=== PATIENT | male | born 1975 | race Caucasian/White ===

== ENCOUNTER 2018-04-19 15:22 | Observation (INO) | payer OTHER, SELFPAY ==
[2018-04-19] VITALS (72 sets, daily range): BP systolic 135–153; BP diastolic 76–88; PULSE 60–77; RESP 15–20; TEMP 36.7–37.7; O2SAT 94–99
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
[2018-04-19 15:48] LABS: Abs Immature Grans 0.05 k/cumm (0.0-0.09); Absolute Basophil Count 0.03 k/cumm (0.0-0.2); Absolute Eosinophil Count 0.03 k/cumm (0.0-0.7); Absolute Lymphocyte Count 1.15 k/cumm (1.2-3.4); Absolute Neutrophil Count 15.03 k/cumm (1.2-6.7); Basophils % 0.2; Eosinophils % 0.2; HCT 44.5 % (40.0-50.0); HGB 14.6 g/dL (13.5-17.5); Immature Grans % 0.3; Lymphocytes % 6.7; Mean Corp. HGB Concentration 32.8 g/dL (32.0-36.0); Mean Corpuscular Hemoglobin 31.5 pg (27.0-33.0); Mean Corpuscular Volume 96.1 fL (80-95); Mean Platelet Volume 11.2 fL (8.0-11.0); Monocytes % 4.7; Neutrophils % 87.9; Platelet Count 170 x1000/uL (130-400); RBC 4.63 m/cumm (4.50-6.00); RBC Distribution Width 13.2 % (11.8-14.1)
[2018-04-19] MEDS: fentaNYL 100 MCG/2 ML VIAL IVP (15:48)
[2018-04-19] MEDS: Normal Saline 1,000 ML 1000 ML IV (15:49)
[2018-04-19 16:19] LABS: ALT 33 U/L (12-78); AST 34 U/L (15-37); Albumin 3.9 g/dL (3.4-5.0); Alkaline Phosphatase 80 U/L (46-116); Anion Gap 6.3 mmol/L (3-11); BUN 23 mg/dL (7-18); Bilirubin, Total 0.4 mg/dL (0.2-1.0); CO2 29.7 mmol/L (21.0-32.0); CREATININE 0.95 mg/dL (0.70-1.30); Calcium 8.7 mg/dL (8.5-10.1); Chloride 104 mmol/L (98-107); Glucose 123 mg/dL (70-100); Magnesium 2.1 mg/dL (1.8-2.4); Potassium 4.3 mmol/L (3.5-5.1); Sodium 140 mmol/L (136-145); Total Protein 7.1 g/dL (6.4-8.2); Troponin I < 0.02 ng/mL (0.00-0.06)
[2018-04-19] MEDS: Omnipaque 350 MG/ML 100 ML BTL IJ (16:29)
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
[2018-04-19] MEDS: HYDROmorphone 4 MG TAB PO (17:50)
--- NOTE | 2018-04-19 18:00 | RESPIRATORY ---
Patient unable to focus attention on incentive spirometry instruction. Gave instruction and why important to use IS to spouse. She understood all and had no questions afterwards. I did have the patient take an inspiration on the IS to show spouse manuever I was looking for. Encouraged 10 breath an hour.
[2018-04-19] MEDS: HYDROmorphone 2 MG/ML VIAL (20:57)
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
[2018-04-19] MEDS: Ketorolac 30 MG/ML VIAL IVP (22:39)
[2018-04-19] MEDS: oxyCODONE 5 mg/Acetaminophen 325 mg TAB 2 TAB PO (23:31)
[2018-04-20 01:15] VITALS: BP 124/77; PULSE 66; RESP 16; TEMP 37.1; O2SAT 95
[2018-04-20 03:40] VITALS: BP 114/62; PULSE 53; RESP 16; TEMP 36.7; O2SAT 97
[2018-04-20] MEDS: Ketorolac 30 MG/ML VIAL IVP ×2 (04:08→10:57)
[2018-04-20] MEDS: Normal Saline Flush 10 ML SYR IVP ×2 (04:09→10:56)
[2018-04-20 07:40] VITALS: BP 131/83; PULSE 61; RESP 17; TEMP 36.2; O2SAT 97
[2018-04-20 07:46] LABS: HCT 40.7 % (40.0-50.0); HGB 12.9 g/dL (13.5-17.5); Mean Corp. HGB Concentration 31.7 g/dL (32.0-36.0); Mean Corpuscular Hemoglobin 30.6 pg (27.0-33.0); Mean Corpuscular Volume 96.7 fL (80-95); Mean Platelet Volume 11.8 fL (8.0-11.0); Platelet Count 148 x1000/uL (130-400); RBC 4.21 m/cumm (4.50-6.00); RBC Distribution Width 13.5 % (11.8-14.1); White Blood Cell Count 9.13 k/cumm (4.4-10.8)
[2018-04-20] MEDS: oxyCODONE 5 mg/Acetaminophen 325 mg TAB 2 TAB PO ×2 (09:07→13:26)
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
--- NOTE | 2018-04-20 10:11 | PT.INIE ---
Date of service: 04/20/18 Time of Service: 09:50 PT Notes ERROR
[2018-04-20 11:20] VITALS: BP 113/62; PULSE 82; RESP 18; TEMP 37.4; O2SAT 97
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
--- NOTE | 2018-04-20 12:04 | PDOC.CMIN ---
Care Management Initial Assess REASON FOR HOSPITALIZATION:: Closed FX six ribs L side, closed L scapular FX, closed L clavicular FX PAST MEDICAL HISTORY/PAST SURGICAL HISTORY:: No history provided. PREVIOUS FUNCTIONAL STATUS/SOCIAL/FAMILY SUPPORTS:: Independent. Lives with his at their home in [facility] CURRENT FUNCTIONAL STATUS:: Lying in bed. Resting comfortably after receiving medication for pain. Nelia, his dredge engineer, is at his side. PT mobilized him earlier but it will be several weeks before he can resume his normal activity. ADVANCE DIRECTIVES:: None on file Has patient been provided with information about the portal?: No Did the patient sign up for the portal?: No CODE STATUS:: Full Code INSURANCE COVERAGE / FINANCIAL ISSUES:: [employer] CURRENT HOME/COMMUNITY SERVICES/EQUIPMENT:: None PRIMARY CARE PHYSICIAN:: PCP is in [place] POTENTIAL DISCHARGE NEEDS:: None PATIENT/FAMILY EDUCATION NEEDS:: Discharge instructions ANTICIPATED BARRIERS TO DISCHARGE:: None TRANSPORTATION:: Nelia will transport by car PLAN:: Return home andfollow up with is PCP.
--- NOTE | 2018-04-20 12:18 | INITIAL_ITS ---
Care Management Initial Assess REASON FOR HOSPITALIZATION:: Closed FX six ribs L side, closed L scapular FX, closed L clavicular FX PAST MEDICAL HISTORY/PAST SURGICAL HISTORY:: No history provided. PREVIOUS FUNCTIONAL STATUS/SOCIAL/FAMILY SUPPORTS:: Independent. Lives with his at their home in [facility] CURRENT FUNCTIONAL STATUS:: Lying in bed. Resting comfortably after receiving medication for pain. Nelia, his life enrichment assistant, is at his side. PT mobilized him earlier but it will be several weeks before he can resume his normal activity. ADVANCE DIRECTIVES:: None on file Has patient been provided with information about the portal?: No Did the patient sign up for the portal?: No CODE STATUS:: Full Code INSURANCE COVERAGE / FINANCIAL ISSUES:: [employer] CURRENT HOME/COMMUNITY SERVICES/EQUIPMENT:: None PRIMARY CARE PHYSICIAN:: PCP is in [place] POTENTIAL DISCHARGE NEEDS:: None PATIENT/FAMILY EDUCATION NEEDS:: Discharge instructions ANTICIPATED BARRIERS TO DISCHARGE:: None TRANSPORTATION:: Nelia will transport by car PLAN:: Return home andfollow up with is PCP.
--- NOTE | 2018-04-20 12:19 | PDOC.CMDIS ---
LACE Index Scoring Tool - Questions: Length of Stay (in days): 1 Acuity (Admit via E.D.?): Yes E.D. Visits: 1 - Answers: Total Score: 5 Risk of Readmission: Low Risk Care Management Discharge Reason for Hospitalization: Closed FX six ribs L side, closed L scapular FX, closed L clavicular FX Discharge Plan: Return to his home in [facility] and follow up with PCP. automatic corn grinder operator, Nelia, will transport by car. Patient/Family Education Needs: Discharge instructions from the Orthopedic Surgeon.
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
== END 2018-04-20 15:40 | disposition home or self-care (01) ==
LOC: ER 18:54 → MS 20:56
PROVIDERS: Admitting Provider Surgery; Emergency Provider Physician Assistant; Visit Provider Surgery
DX: S42.022A Displaced fracture of shaft of left clavicle, initial encounter for closed fracture (principal); S42.112A Displaced fracture of body of scapula, left shoulder, initial encounter for closed fracture; S22.42XA Multiple fractures of ribs, left side, initial encounter for closed fracture; V19.88XA Pedal cyclist (driver) (passenger) injured in other specified transport accidents, initial encounter; Y93.55 Activity, bike riding; Y92.838 Other recreation area as the place of occurrence of the external cause
CPT/HCPCS: 36415; 74177; 80053; 85027; 96361; 96374; 96375; 97161; 99222; 99239; 99252; 99285; 70450; 71260; 72125; 73000; 83735; 84484; 85025; G0378; G8978; J1885; J3010; J3490; L3650